=== PATIENT | female | born 1965 | race Caucasian/White ===

== ENCOUNTER → 2017-01-28 | Outpatient (CLI) | payer BC ==
[~2017-01-28] MED LIST: ALEVE 220MG220 MG PO; DECADRON 4MG TAB4 MG PO; KEPPRA 500MG500 MG PO; TYLENOL 325MG325 MG PO
== END ==
LOC: MC.RAD 10:40
DX: Z12.31 Encounter for screening mammogram for malignant neoplasm of breast (principal)

== ENCOUNTER → 2018-02-23 | Outpatient (CLI) | payer BC | LOC: MC.RAD 02-13 10:00 | DX: Z12.31 Encounter for screening mammogram for malignant neoplasm of breast (principal) ==

== ENCOUNTER 2018-06-02 07:52 | Day surgery (SDC) | payer BC ==
[~2018-06-02] VITALS: Ht 152.4 cm; Wt 66.5 kg
[2018-06-02] MEDS ORDERED: EFFEXOR XR75 MG/CAP PO (08:14)
[2018-06-02] MEDS ORDERED: MIRALAX PA17 GM/Dose PO (08:15)
[2018-06-02] MEDS ORDERED: COLON CLEANSE (08:16)
[2018-06-02 08:22] VITALS: BP 114/70; PULSE 59; TEMP 99.2
[2018-06-02 10:35] VITALS: BP 95/58; PULSE 64; TEMP 98.6
[2018-06-02 10:45] VITALS: BP 106/55; PULSE 61
== END 2018-06-02 11:31 | disposition home or self-care (01) ==
LOC: SDCO 07:52
DX: Z12.11 Encounter for screening for malignant neoplasm of colon (principal); K63.89 Other specified diseases of intestine; Z83.71 Family history of colonic polyps
CPT/HCPCS: J2250; J3010; J7030

== ENCOUNTER → 2019-04-24 | Outpatient (CLI) | payer BC ==
[~2019-04-24] MED LIST changes: +COLON CLEANSE; +EFFEXOR XR75 MG/CAP PO; +MIRALAX PA17 GM/Dose PO
== END ==
LOC: MC.RAD 16:15
DX: Z12.31 Encounter for screening mammogram for malignant neoplasm of breast (principal)

== ENCOUNTER → 2019-09-24 | Outpatient (CLI) | payer BC | LOC: COL.RAD 14:04 | DX: M79.672 Pain in left foot (principal) | CPT/HCPCS: J3301; Q9967 ==

== ENCOUNTER → 2020-06-18 | Outpatient (CLI) | payer BC | LOC: MC.RAD 13:49 | DX: Z12.31 Encounter for screening mammogram for malignant neoplasm of breast (principal) ==

== ENCOUNTER → 2021-06-23 | Outpatient (CLI) | payer BC | LOC: MC.RAD 16:42 | DX: Z12.31 Encounter for screening mammogram for malignant neoplasm of breast (principal) ==

== ENCOUNTER → 2023-08-16 | Outpatient (CLI) | payer BC | LOC: CANSCHCLI → MC.RAD 14:33 | DX: Z12.31 Encounter for screening mammogram for malignant neoplasm of breast (principal) ==

== ENCOUNTER 2024-04-16 20:21 | Emergency (ER) | payer BC ==
[~2024-04-16] VITALS: Ht 162.6 cm; Wt 81.8 kg
[2024-04-16 20:28] VITALS: TEMP 98.1
[2024-04-16 23:27] VITALS: BP 97/77; PULSE 82
== END 2024-04-17 00:20 | disposition home or self-care (01) ==
LOC: COL.ER 20:21
DX: S00.03XA Contusion of scalp, initial encounter (principal); S00.83XA Contusion of other part of head, initial encounter; S10.93XA Contusion of unspecified part of neck, initial encounter; W18.40XA Slipping, tripping and stumbling without falling, unspecified, initial encounter